=== PATIENT | female | born 1975 | race Caucasian/White ===

== ENCOUNTER → 2020-06-04 | Outpatient (REF) | payer OTHER ==
[2020-06-05 12:24] LABS: AMORPHOUS SEDIMENT MODERATE (NEGATIVE); APPEARANCE, URINE TURBID (CLEAR); BACTERIA, URINE AUTO NEGATIVE (NEGATIVE); BILIRUBIN, URINE AUTO NEGATIVE (NEGATIVE); BLOOD, URINE BLOOD NEGATIVE (NEGATIVE); CALCIUM OXALATE CRYSTALS SMALL; COLOR, URINE YELLOW (YELLOW); GLUCOSE, URINE (UA) AUTO 3+ mg/dL (NEGATIVE); KETONE, URINE AUTO TRACE mg/dL (NEGATIVE); LEUKOCYTE ESTERASE, URINE AUTO NEGATIVE (NEGATIVE); MUCUS, URINE LARGE (NEGATIVE); NITRITE, URINE AUTO NEGATIVE (NEGATIVE); PROTEIN, URINE AUTO 1+ mg/dL (NEGATIVE); RBC, URINE AUTO 0 /HPF (0-3); SPECIFIC GRAVITY URINE AUTO 1.027 (1.002-1.035); SQUAMOUS EPITHELIAL CELL UR AU 0 /HPF (0-6); WBC, URINE AUTO 0 /HPF (0-3)
== END ==
LOC: M LAB REF 12:09
PROVIDERS: ATTEND Physician Assistant
DX: R30.9 Painful micturition, unspecified (principal)

== ENCOUNTER → 2020-06-27 | Outpatient (REF) | payer OTHER ==
[~2020-06-27] MED LIST: FAMO40TA3 PO; HYDR-3363 PO; MORP30TASA PO; SERT50TA29 PO; SUCR1TAB56 PO; ZOFR4TAB16 PO
[2020-06-27 17:53] LABS: BASO % 0.8 % (0.0-1.0); EOS # 0.1 10^3/uL (0.0-0.5); EOS % 1.8 % (0.0-3.0); HEMATOCRIT 30.1 % (36.0-47.0); HEMOGLOBIN 8.5 g/dl (12.0-15.5); LYMPH # 1.3 10^3/uL (1.5-5.0); LYMPH % 26.1 % (24.0-44.0); MEAN CORPUSCULAR HGB CONC 28.2 g/dl (32.0-36.5); MEAN CORPUSCULAR VOLUME 70.7 fl (80.0-96.0); MONO # 0.4 10^3/uL (0.0-0.8); MONO % 7.3 % (2.0-8.0); NEUTROPHILS # 3.2 10^3/uL (1.5-8.5); NEUTROPHILS % 63.6 % (36.0-66.0); PLATELET COUNT, AUTOMATED 292 10^3/uL (150-450); RED BLOOD COUNT 4.26 10^6/uL (4.00-5.40); WHITE BLOOD COUNT 5.1 10^3/uL (4.0-10.0)
[2020-06-27 18:20] LABS: ALBUMIN 3.5 GM/DL (3.2-5.2); ALT/SGPT 15 U/L (12-78); BILIRUBIN,TOTAL 0.3 MG/DL (0.2-1.0); BLOOD UREA NITROGEN 12 MG/DL (7-18); CALCIUM LEVEL 8.5 MG/DL (8.5-10.1); CARBON DIOXIDE LEVEL 27 MEQ/L (21-32); CHLORIDE LEVEL 107 MEQ/L (98-107); CREATININE FOR GFR 0.65 MG/DL (0.55-1.30); GLOMERULAR FILTRATION RATE > 60.0 (>58); GLUCOSE, FASTING 80 MG/DL (70-100); IRON (FE) 13 UG/DL (50-170); MAGNESIUM LEVEL 1.8 MG/DL (1.8-2.4); PERCENT SATURATION 3.3 % (13.2-45.0); POTASSIUM SERUM 4.2 MEQ/L (3.5-5.1); SODIUM LEVEL 140 MEQ/L (136-145); TOTAL IRON BINDING CAPACITY 390 UG/DL (250-450); TOTAL PROTEIN 6.8 GM/DL (6.4-8.2)
[2020-06-27 18:21] LABS: FERRITIN < 3 NG/ML (8-252)
[2020-06-27 18:25] LABS: FOLATE 9.8 NG/ML; VITAMIN B12 LEVEL 459 PG/ML
[2020-06-30 15:06] LABS: ANA (HEP2) Positive (.); C-PEPTIDE 2.2 ng/mL (1.1-4.4)
== END ==
LOC: M LAB REF 16:17
PROVIDERS: ATTEND Pediatrics
DX: E61.1 Iron deficiency (principal); E16.2 Hypoglycemia, unspecified; K21.9 Gastro-esophageal reflux disease without esophagitis; Z98.84 Bariatric surgery status; M12.9 Arthropathy, unspecified; E07.9 Disorder of thyroid, unspecified

== ENCOUNTER 2020-07-19 21:56 | Emergency (ER) | payer MEDICARE, MEDICAID ==
[~2020-07-19] VITALS: Ht 180.3 cm; Wt 99.5 kg
[2020-07-19] MEDS ORDERED: HYDR-3363 PO (22:05)
[2020-07-19] MEDS ORDERED: SUCR1TAB56 PO (22:05)
[2020-07-19] MEDS ORDERED: MORP30TASA PO (22:05)
[2020-07-19] MEDS ORDERED: SERT50TA29 PO (22:05)
[2020-07-19] MEDS ORDERED: FAMO40TA3 PO (22:05)
[2020-07-19] MEDS ORDERED: NS 500 ML IV ONE (23:10)
[2020-07-19] MEDS ORDERED: ONDANSETRON 4MG/2ML VIAL IV ONE (23:10)
[2020-07-19 23:34] LABS: HEMATOCRIT 31.5 % (36.0-47.0); HEMOGLOBIN 9.1 g/dl (12.0-15.5); MEAN CORPUSCULAR HEMOGLOBIN 20.7 pg (27.0-33.0); MEAN CORPUSCULAR HGB CONC 28.9 g/dl (32.0-36.5); MEAN CORPUSCULAR VOLUME 71.6 fl (80.0-96.0); PLATELET COUNT, AUTOMATED 230 10^3/uL (150-450); WHITE BLOOD COUNT 5.3 10^3/uL (4.0-10.0)
[2020-07-19] MEDS ORDERED: OMEPRAZOLE 20 MG CAP PO ONE (23:45)
[2020-07-20 00:05] LABS: HCG, SERUM QUALITATIVE NEGATIVE (NEGATIVE)
[2020-07-20 00:10] LABS: ALBUMIN 3.3 GM/DL (3.2-5.2); ALT/SGPT 14 U/L (12-78); BILIRUBIN,TOTAL 0.3 MG/DL (0.2-1.0); BLOOD UREA NITROGEN 15 MG/DL (7-18); CALCIUM LEVEL 8.4 MG/DL (8.5-10.1); CARBON DIOXIDE LEVEL 27 MEQ/L (21-32); CHLORIDE LEVEL 110 MEQ/L (98-107); CK-MB VALUE MASS < 1.0 NG/ML (<3.6); CPK CREATINE PHOSPHOKINASE 67 U/L (26-192); CREATININE FOR GFR 0.62 MG/DL (0.55-1.30); GLOMERULAR FILTRATION RATE > 60.0 (>58); GLUCOSE, FASTING 82 MG/DL (70-100); MB/CK RELATIVE INDEX 1.49 (< OR =4); POTASSIUM SERUM 3.8 MEQ/L (3.5-5.1); SODIUM LEVEL 142 MEQ/L (136-145); THYROID STIMULATING HORMONE 0.462 uIU/ML (0.358-3.740); TOTAL PROTEIN 7.1 GM/DL (6.4-8.2); TROPONIN I < 0.02 NG/ML (< 0.10)
--- NOTE | 2020-07-20 01:05 | REPVR ---
PROCEDURE INFORMATION: Exam: XR Chest Exam date and time: 07/20/2020 12:28 AM Age: 44 years old Clinical indication: Chest pain TECHNIQUE: Imaging protocol: XR of the chest Views: 1 view. COMPARISON: No relevant prior studies available. FINDINGS: Lungs: Unremarkable. No consolidation. No pulmonary edema. Pleural spaces: Unremarkable. No pleural effusion. No pneumothorax. Heart/Mediastinum: Unremarkable. No cardiomegaly. Bones/joints: Unremarkable. IMPRESSION: No acute findings. Electronically signed by: Ethan Montano On 07/20/2020 01:05:22 AM
[2020-07-20] MEDS ORDERED: NS 1,000 ML IV ONE (01:15)
[2020-07-20] MEDS ORDERED: ZOFR4TAB16 PO (02:47)
[2020-07-20 03:03] VITALS: BP 103/61
--- NOTE | 2020-07-20 07:42 | ECGEPIP ---
[facility] - ED Test Date: 2020-07-19 Pat Name: MINDA PALENCIA Department: Room: - Gender: Female Director Fundraising: ANTONIA : 1975 Requested By: Shreyas Niño Order Number: [id number] Reading MD: Minda Gilmore Measurements Intervals [place] Rate: 46 P: 30 CO: 154 QRS: 53 QRSD: 72 T: 61 QT: 452 QTc: 395 Interpretive Statements Sinus bradycardia No prior Electronically Signed on 07-20-2020 7:41:46 EDT by Minda Gilmore
== END 2020-07-20 03:05 | disposition home or self-care (01) ==
LOC: M ED 21:56
DX: D50.8 Other iron deficiency anemias (principal); R53.1 Weakness; R53.83 Other fatigue; R00.1 Bradycardia, unspecified; E16.2 Hypoglycemia, unspecified; Z98.84 Bariatric surgery status
CPT/HCPCS: 71045; 80053; 81001; 82550; 82553; 84443; 84484; 84703; 85027; 86850; 86900; 86901; 87086; 93005; 96361; 96374; 99284; J2405

== ENCOUNTER 2020-08-31 21:25 | Emergency (ER) | payer MEDICARE, MEDICAID ==
[~2020-08-31] VITALS: Ht 180.3 cm; Wt 79.3 kg
--- NOTE | 2020-08-31 22:23 | REPVR ---
PROCEDURE INFORMATION: Exam: XR Right Wrist Exam date and time: 08/31/2020 9:49 PM Age: 45 years old Clinical indication: Pain; Wrist; Right; Additional info: Injury TECHNIQUE: Imaging protocol: XR Right wrist. Views: 3 or more views. COMPARISON: No relevant prior studies available. FINDINGS: Bones/joints: There is no fracture or dislocation. No widening of the scapholunate or lunotriquetral spaces is noted. There is no evidence for carpal instability in the wrist. Neutral ulnar variance is present. The joint spaces are preserved. No arthropathy is noted. Soft tissues: Unremarkable. IMPRESSION: No acute findings. Electronically signed by: Ethan Montano On 08/31/2020 22:23:32 PM
[2020-09-01] MEDS ORDERED: NORCO, ANEXSIA 5/325MG TABLET (HYDROcodone/ACETAMINOPHEN) PO ONE (00:25)
[2020-09-01 00:37] VITALS: BP 108/64
== END 2020-09-01 00:50 | disposition home or self-care (01) ==
LOC: M ED 21:25
DX: S69.91XA Unspecified injury of right wrist, hand and finger(s), initial encounter (principal); X58.XXXA Exposure to other specified factors, initial encounter; Y92.830 Public park as the place of occurrence of the external cause; Y93.89 Activity, other specified; Y99.9 Unspecified external cause status; Z79.899 Other long term (current) drug therapy; Z88.6 Allergy status to analgesic agent

== ENCOUNTER → 2020-09-10 | Outpatient (CLI) | payer MEDICARE, MEDICAID, OTHER ==
--- NOTE | 2020-09-11 08:14 | REP ---
INDICATION: RADICULOPATHY LUMBAR. COMPARISON: None. TECHNIQUE: Sagittal and axial T1 and T2-weighted scans are acquired in the usual fashion with and without fat saturation. Sequences include spin echo, turbo spin-echo, and STIR imaging sequences. FINDINGS: There is slight straightening of the normal lumbar lordosis. No bony destructive lesion is seen. Vertebral body heights are preserved. There are reactive marrow changes associated with degenerative disc disease at the L5-S1 level. There is also degenerative disc disease at L2-3. Cortical and medullary bone signal intensity are otherwise normal. The tip of the conus medullaris is normal in position and appearance at T12. No extra vertebral abnormality is appreciated. Axial and sagittal images taken at the L1-2 level are unremarkable. At L2-3 there is degenerative disc narrowing. Minimal diffuse disc bulging is seen subtly indenting the ventral margin of the thecal sac. No spinal stenosis or foraminal encroachment. Axial and sagittal images at L3-4 are unremarkable. At L4-5, there is mild degenerative disc narrowing and desiccation. Mild diffuse disc bulging is seen. This indents the ventral margin of the thecal sac. No neural foraminal narrowing or geovani spinal stenosis is seen. At L5-S1, there is degenerative narrowing of the disc with reactive marrow changes as above. There is diffuse disc bulging and some early posterior osteophytic ridging is seen. A broad-based central focal disc protrusion is seen subtly indenting the thecal sac. This abuts the left S1 root sleeve. No spinal stenosis is seen. There is minimal ligamentum flavum hypertrophy and some mild hypertrophy of the facets is seen. There is no neural foraminal narrowing. There is no evidence of spondylolysis or spondylolisthesis. IMPRESSION: Broad-based central focal disc protrusion at L5-S1. Degenerative disc changes at L5-S1, L4-5, and L2-3. <Electronically signed by Roland Mueller > 09/11/20 [id number]
== END ==
LOC: M RAD 17:22
PROVIDERS: ATTEND Nurse Practitioner Family
DX: M51.36 Other intervertebral disc degeneration, lumbar region (principal); M48.08 Spinal stenosis, sacral and sacrococcygeal region; M54.16 Radiculopathy, lumbar region

== ENCOUNTER 2020-09-15 13:47 | Emergency (ER) | payer MEDICARE, OTHER ==
[~2020-09-15] VITALS: Ht 180.3 cm; Wt 77.3 kg
[2020-09-15 13:48] VITALS: BP 112/69
[2020-09-15] MEDS ORDERED: PREG75CA2 (13:57)
[2020-09-15] MEDS ORDERED: NS 1,000 ML IV SCH (14:55)
== END 2020-09-15 15:31 | disposition left against medical advice (07) ==
LOC: M ED 13:47
DX: R53.1 Weakness (principal); Z53.9 Procedure and treatment not carried out, unspecified reason; K21.9 Gastro-esophageal reflux disease without esophagitis; Z98.84 Bariatric surgery status; F17.200 Nicotine dependence, unspecified, uncomplicated; Z79.899 Other long term (current) drug therapy; Z88.6 Allergy status to analgesic agent

== ENCOUNTER 2020-10-12 16:36 | Emergency (ER) | payer MEDICARE, OTHER ==
[~2020-10-12] VITALS: Ht 180.3 cm; Wt 78.3 kg
[~2020-10-12 16:36] MED LIST changes: +PREG75CA2 PO
[2020-10-12] MEDS ORDERED: WELLTAB38 PO (16:46)
[2020-10-12] MEDS ORDERED: PERCOCET 5MG/325MG TAB PO ONE (19:30)
--- NOTE | 2020-10-12 19:33 | REPVR ---
PROCEDURE INFORMATION: Exam: XR Right Wrist Exam date and time: 10/12/2020 4:58 PM Age: 45 years old Clinical indication: Pain; Wrist; Right; Additional info: Trauma TECHNIQUE: Imaging protocol: XR Right wrist. Views: 3 or more views. COMPARISON: CR Wrist, complete RIGHT 08/31/2020 9:34 PM FINDINGS: Bones/joints: Minimal cortical step-off is seen at the dorsal radial aspect of the distal radius on the oblique view. This is likely a subtle nondisplaced fracture. No dislocation. However, there is increased dorsal subluxation of the ulna at the distal radioulnar joint. Appearance could be exaggerated by position. No active erosions or active periostitis. Soft tissues: Severe dorsal soft tissue swelling. IMPRESSION: 1. Suspect acute subtle nondisplaced distal radial fracture. 2. Slightly increased dorsal subluxation of the ulna at the distal radioulnar joint compared to the prior study, but this could be exaggerated by positioning. 3. Severe dorsal soft tissue swelling. Although dorsal triquetral avulsion fracture is not definitively identified, this degree of dorsal soft tissue swelling is often seen with dorsal triquetral fractures. Electronically signed by: Sho Linton On 10/12/2020 19:32:34 PM
[2020-10-12] MEDS ORDERED: MORPHINE 10 MG/ML 1ML VIAL (J2270) IM ONE (20:10)
[2020-10-12] MEDS ORDERED: NORCO 5/325MG TABLET (BULK FOR ED) PO ONE (22:10)
[2020-10-12 22:20] VITALS: BP 119/59
== END 2020-10-12 22:25 | disposition home or self-care (01) ==
LOC: M ED 16:36
DX: S52.501A Unspecified fracture of the lower end of right radius, initial encounter for closed fracture (principal); S62.114A Nondisplaced fracture of triquetrum [cuneiform] bone, right wrist, initial encounter for closed fracture; W01.0XXA Fall on same level from slipping, tripping and stumbling without subsequent striking against object, initial encounter; Y92.828 Other wilderness area as the place of occurrence of the external cause; Y93.9 Activity, unspecified; Y99.9 Unspecified external cause status; D64.9 Anemia, unspecified; F41.9 Anxiety disorder, unspecified; F33.9 Major depressive disorder, recurrent, unspecified; Z88.6 Allergy status to analgesic agent; F17.200 Nicotine dependence, unspecified, uncomplicated; Z79.899 Other long term (current) drug therapy
CPT/HCPCS: 73110; 99284; J2270

== ENCOUNTER → 2020-12-02 | Outpatient (CLI) | payer MEDICARE, OTHER ==
[~2020-12-02] MED LIST changes: +WELLTAB38 PO
--- NOTE | 2020-12-02 11:49 | REP ---
INDICATION: FX LOWER END RIGHT RADIUS. COMPARISON: None. TECHNIQUE: Three views FINDINGS: Nondisplaced healing fracture distal radius. IMPRESSION: Nondisplaced healing fracture distal radius <Electronically signed by Alexis Graf > 12/02/20 114
== END ==
LOC: M SOG 09:46
PROVIDERS: ATTEND Orthopaedic Surgery Sports Medicine
DX: S52.591D Other fractures of lower end of right radius, subsequent encounter for closed fracture with routine healing (principal); X58.XXXD Exposure to other specified factors, subsequent encounter; Y92.9 Unspecified place or not applicable; Y93.9 Activity, unspecified; Y99.9 Unspecified external cause status

== ENCOUNTER → 2021-01-26 | Outpatient (CLI) | payer MEDICARE, OTHER ==
[~2021-01-26] MED LIST changes: +ISOVUE-370 76% 100ML VIAL As Ordered ONE; +MELO15TA28; +PREG150C; +ZOLO100T
--- NOTE | 2021-01-28 07:59 | REP ---
INDICATION: LUPUS COMPARISON: None TECHNIQUE: Axial contrast enhanced images from the thoracic inlet to the upper abdomen using 100 ml Isovue 370 intravenous contrast material followed by CT of the abdomen and pelvis. Coronal and sagittal reformations obtained. This CT examination was performed using the following dose reduction techniques: Automated exposure control, adjustment of mA and/or kv according to the patient's size, and use of iterative reconstruction technique. FINDINGS: The bilateral lung rodas are well aerated and clear. No consolidation, suspicious nodule or mass identified. No effusion. No pneumothorax. Tracheobronchial tree is patent. No axillary, hilar, or mediastinal adenopathy. Mediastinum demonstrates normal thoracic aorta, pulmonary vasculature, and heart/pericardium. Surrounding musculoskeletal structures are intact and without acute osseous abnormality. Limited upper abdomen demonstrates normal bilateral adrenal glands along with evidence for prior gastric bypass surgery. IMPRESSION: Normal contrast-enhanced chest CT. No acute mediastinal or pleuroparenchymal process. <Electronically signed by Micheal Hayes > 01/28/21 [id number]
--- NOTE | 2021-01-28 08:02 | REP ---
INDICATION: LUPUS. COMPARISON: None TECHNIQUE: Axial contrast-enhanced images from the lung bases to the pubic symphysis using 100 cc Isovue 370 intravenous contrast material. Coronal and sagittal reformations obtained. This CT examination was performed using the following dose reduction techniques: Automated exposure control, adjustment of mA and/or kv according to the patient's size, and the use of iterative reconstruction technique. FINDINGS: Liver, spleen, pancreas, gallbladder, bilateral adrenal glands and kidneys are normal. Incidental 1 cm right renal cyst noted. The enteric system is without obstruction or acute inflammatory process. Evidence for prior gastric bypass surgery noted.. Pelvis demonstrates normal bladder and age-appropriate uterus/adnexa. No ascites. No free air. No intraperitoneal or retroperitoneal adenopathy. Abdominal aorta and vasculature appear normal. Musculoskeletal structures are intact and without acute osseous abnormality. IMPRESSION: No acute abdominopelvic pathology appreciated. <Electronically signed by Micheal Hayes > 01/28/21 [id number]
== END ==
LOC: M RAD 16:39
PROVIDERS: ATTEND Internal Medicine Medical Oncology
DX: L93.0 Discoid lupus erythematosus (principal); R42 Dizziness and giddiness; N28.1 Cyst of kidney, acquired; Z98.84 Bariatric surgery status
CPT/HCPCS: 71260; 74177; Q9967

== ENCOUNTER → 2021-03-13 | Outpatient (CLI) | payer MEDICARE, OTHER ==
[~2021-03-13] MED LIST changes: -ISOVUE-370 76% 100ML VIAL As Ordered ONE; +PROHANCE 279.3MG/ML 15ML VIAL ONE
--- NOTE | 2021-03-13 22:42 | REPVR ---
PROCEDURE INFORMATION: Exam: MR Head Without and With Contrast Exam date and time: 03/13/2021 10:00 AM Age: 45 years old Clinical indication: Dizziness; Additional info: Lupus, dizziness TECHNIQUE: Imaging protocol: MR of the head without and with intravenous contrast. Contrast material: PROHANCE; Contrast volume: 15 ml; Contrast route: INTRAVENOUS (IV); COMPARISON: No relevant prior studies available. FINDINGS: Brain: Few small scattered nonspecific T2/FLAIR hyperintensities of the periventricular and deep subcortical white matter. No intracranial hemorrhage or extra-axial fluid collection. No evidence of mass effect or midline shift. No restricted diffusion to suggest acute infarct. No abnormal intracranial enhancement. Cerebral ventricles: No ventriculomegaly. Bones/joints: Unremarkable. Paranasal sinuses: Normal as visualized. No acute sinusitis. Mastoid air cells: No mastoid effusion. Orbital cavity: Unremarkable. Soft tissues: Unremarkable. IMPRESSION: Few small nonspecific T2/FLAIR hyperintensities of the periventricular and deep subcortical white matter. Differential includes but is not limited to sequela of chronic small vessel ischemic change (though this would be greater than expected for patient's age), demyelinating disease, vasculitis, migraine, or other chronic inflammatory white matter process. Follow-up at the discretion of neurology. Electronically signed by: Toby Sampson On 03/13/2021 22:41:23 PM
== END ==
LOC: M PLAIMG 08:41
PROVIDERS: ATTEND Internal Medicine Medical Oncology
DX: L93.0 Discoid lupus erythematosus (principal); R42 Dizziness and giddiness
CPT/HCPCS: 70553; A9576

== ENCOUNTER → 2021-04-29 | Outpatient (REF) | payer OTHER, MEDICARE ==
[~2021-04-29] MED LIST changes: -PROHANCE 279.3MG/ML 15ML VIAL ONE
== END ==
LOC: M LAB REF 16:59
PROVIDERS: ATTEND Pediatrics
DX: R82.5 Elevated urine levels of drugs, medicaments and biological substances (principal)

== ENCOUNTER → 2022-08-25 | Outpatient (REF) | payer OTHER, MEDICAID ==
[2022-08-25 18:38] LABS: C REACTIVE PROTEIN QUANTITATIV < 0.40 MG/DL (<1.0); TOTAL IRON BINDING CAPACITY 349 UG/DL (250-425)
[2022-08-25 18:40] LABS: ALBUMIN 3.5 G/DL (3.2-5.2); ALKALINE PHOSPHATASE 47 U/L (46-116); ALT/SGPT 14 U/L (7.0-40); AST/SGOT 15 U/L (<34); BILIRUBIN,TOTAL 0.4 MG/DL (0.3-1.2); BLOOD UREA NITROGEN 13 MG/DL (9-23); CALCIUM LEVEL 9.1 MG/DL (8.5-10.1); CARBON DIOXIDE LEVEL 28 MMOL/L (20-31); CHLORIDE LEVEL 106 MMOL/L (98-107); CREATININE FOR GFR 0.63 MG/DL (0.55-1.30); FOLATE 8.7 NG/ML (>5.4); GLOMERULAR FILTRATION RATE > 60.0 (>58); GLUCOSE, FASTING 76 MG/DL (60-100); IRON (FE) 15 UG/DL (50-170); PERCENT SATURATION 4.3 % (13.2-45.0); RHEUMATOID FACTOR QUANT 4.2 IU/ML (<14); SODIUM LEVEL 140 MMOL/L (136-145); THYROID STIMULATING HORMONE 0.884 uIU/ML (0.55-4.78); TOTAL PROTEIN 6.6 G/DL (5.7-8.2); VITAMIN B12 LEVEL 371 PG/ML (211-911)
[2022-08-25 18:50] LABS: ERYTHROCYTE SEDIMENTATION RATE 13 mm/hr (0-20)
[2022-08-25 18:51] LABS: HEMATOCRIT 34.4 % (36.0-47.0); HEMOGLOBIN 10.3 g/dl (12.0-15.5); MEAN CORPUSCULAR HEMOGLOBIN 25.1 pg (27.0-33.0); MEAN CORPUSCULAR HGB CONC 29.9 g/dl (32.0-36.5); MEAN CORPUSCULAR VOLUME 83.9 fl (80.0-96.0); PLATELET COUNT, AUTOMATED 315 10^3/uL (150-450); WHITE BLOOD COUNT 4.7 10^3/uL (4.0-10.0)
[2022-08-27 23:07] LABS: ANA (HEP2) Positive (.); C-PEPTIDE 7.1 ng/mL (1.1-4.4); CYCLIC CITRULLINATED PEPTIDE 6 units (0-19); INSULIN LEVEL 26.4 uIU/mL (2.6-24.9)
== END ==
LOC: M LAB REF 16:28
PROVIDERS: ATTEND Pediatrics
DX: R76.8 Other specified abnormal immunological findings in serum (principal); Z98.84 Bariatric surgery status; R41.3 Other amnesia; D50.9 Iron deficiency anemia, unspecified

== ENCOUNTER → 2022-10-19 | Outpatient (CLI) | payer OTHER | LOC: M WHC 13:14 | PROVIDERS: ATTEND Pediatrics | DX: Z12.31 Encounter for screening mammogram for malignant neoplasm of breast (principal) ==

== ENCOUNTER → 2022-11-09 | Outpatient (CLI) | payer OTHER ==
[2022-11-09 13:58] LABS: HEMATOCRIT 31.9 % (36.0-47.0); HEMOGLOBIN 9.4 g/dl (12.0-15.5); MEAN CORPUSCULAR HEMOGLOBIN 23.7 pg (27.0-33.0); MEAN CORPUSCULAR HGB CONC 29.5 g/dl (32.0-36.5); MEAN CORPUSCULAR VOLUME 80.4 fl (80.0-96.0); PLATELET COUNT, AUTOMATED 295 10^3/uL (150-450); RED BLOOD COUNT 3.97 10^6/uL (4.00-5.40); WHITE BLOOD COUNT 4.3 10^3/uL (4.0-10.0)
[2022-11-09 14:16] LABS: ALBUMIN 2.9 G/DL (3.2-5.2); ALKALINE PHOSPHATASE 43 U/L (46-116); ALT/SGPT 13 U/L (7.0-40); AST/SGOT 14 U/L (<34); BILIRUBIN,TOTAL 0.6 MG/DL (0.3-1.2); BLOOD UREA NITROGEN 8 MG/DL (9-23); CALCIUM LEVEL 8.9 MG/DL (8.5-10.1); CARBON DIOXIDE LEVEL 28 MMOL/L (20-31); CHLORIDE LEVEL 106 MMOL/L (98-107); CREATININE FOR GFR 0.61 MG/DL (0.55-1.30); GLOMERULAR FILTRATION RATE > 60.0 (>58); GLUCOSE, FASTING 83 MG/DL (60-100); IRON (FE) 22 UG/DL (50-170); PERCENT SATURATION 6.6 % (13.2-45.0); POTASSIUM SERUM 4.6 MMOL/L (3.5-5.1); SODIUM LEVEL 140 MMOL/L (136-145); TOTAL IRON BINDING CAPACITY 331 UG/DL (250-425); TOTAL PROTEIN 5.8 G/DL (5.7-8.2)
[2022-11-09 14:20] LABS: FERRITIN 3.3 NG/ML (7.3-270.7)
[2022-11-09 14:21] LABS: TOTAL 25(OH) VITAMIN D 25.6 NG/ML (20.0-100.0); VITAMIN B12 LEVEL 338 PG/ML (211-911)
== END ==
LOC: M LAB 13:02
PROVIDERS: ATTEND Surgery
DX: K91.2 Postsurgical malabsorption, not elsewhere classified (principal)

== ENCOUNTER → 2022-12-03 | Outpatient (CLI) | payer OTHER ==
[2022-12-03 14:29] LABS: CORTISOL AM 1.9 UG/DL (4.3-22.4)
[2022-12-03 14:33] LABS: BLOOD UREA NITROGEN 15 MG/DL (9-23); CALCIUM LEVEL 8.6 MG/DL (8.5-10.1); CARBON DIOXIDE LEVEL 28 MMOL/L (20-31); CHLORIDE LEVEL 105 MMOL/L (98-107); CREATININE FOR GFR 0.59 MG/DL (0.55-1.30); GLOMERULAR FILTRATION RATE > 60.0 (>58); GLUCOSE, FASTING 82 MG/DL (60-100); POTASSIUM SERUM 4.4 MMOL/L (3.5-5.1); SODIUM LEVEL 137 MMOL/L (136-145)
== END ==
LOC: M PLALAB 09:34
PROVIDERS: ATTEND Internal Medicine Endocrinology, Diabetes & Metabolism
DX: E16.2 Hypoglycemia, unspecified (principal)

== ENCOUNTER → 2022-12-13 | Outpatient (REF) | payer OTHER ==
[2022-12-13 17:08] LABS: BASO % 0.7 % (0.0-1.0); EOS # 0.1 10^3/uL (0.0-0.5); EOS % 1.4 % (0.0-3.0); HEMATOCRIT 32.9 % (36.0-47.0); HEMOGLOBIN 9.7 g/dl (12.0-15.5); LYMPH # 1.4 10^3/uL (1.5-5.0); LYMPH % 24.2 % (24.0-44.0); MEAN CORPUSCULAR HEMOGLOBIN 23.9 pg (27.0-33.0); MEAN CORPUSCULAR HGB CONC 29.5 g/dl (32.0-36.5); MONO # 0.3 10^3/uL (0.0-0.8); MONO % 5.3 % (2.0-8.0); NEUTROPHILS % 68.1 % (36.0-66.0); PLATELET COUNT, AUTOMATED 346 10^3/uL (150-450); RED BLOOD COUNT 4.06 10^6/uL (4.00-5.40); WHITE BLOOD COUNT 5.9 10^3/uL (4.0-10.0)
[2022-12-13 17:09] LABS: APPEARANCE, URINE CLEAR (CLEAR); BACTERIA, URINE AUTO 1+ (NEGATIVE); BILIRUBIN, URINE AUTO NEGATIVE (NEGATIVE); BLOOD, URINE BLOOD NEGATIVE (NEGATIVE); COLOR, URINE YELLOW (YELLOW); GLUCOSE, URINE (UA) AUTO NEGATIVE (NEGATIVE); KETONE, URINE AUTO NEGATIVE (NEGATIVE); LEUKOCYTE ESTERASE, URINE AUTO NEGATIVE (NEGATIVE); NITRITE, URINE AUTO NEGATIVE (NEGATIVE); PROTEIN, URINE AUTO NEGATIVE (NEGATIVE); RBC, URINE AUTO 0 /HPF (0-3); SPECIFIC GRAVITY URINE AUTO 1.021 (1.002-1.035); SQUAMOUS EPITHELIAL CELL UR AU 0 /HPF (0-6); UROBILINOGEN, URINE AUTO 0.2 mg/dL (0.0-2.0); WBC, URINE AUTO 0 /HPF (0-3)
[2022-12-13 17:25] LABS: ERYTHROCYTE SEDIMENTATION RATE 28 mm/hr (0-20)
[2022-12-13 17:30] LABS: CREATININE,RANDOM URINE 117.9 MG/DL
[2022-12-13 17:32] LABS: TOTAL PROTEIN,RANDOM URINE < 6.0 MG/DL (0.0-14.0)
[2022-12-13 17:41] LABS: C REACTIVE PROTEIN QUANTITATIV < 0.40 MG/DL (<1.0)
[2022-12-13 17:43] LABS: COMPLEMENT C3 66.4 MG/DL (90.0-170.0); COMPLEMENT C4 19.6 MG/DL (12-36)
== END ==
LOC: M SFHCRHEU 15:39
PROVIDERS: ATTEND Internal Medicine
DX: R76.8 Other specified abnormal immunological findings in serum (principal); M25.50 Pain in unspecified joint

== ENCOUNTER → 2023-01-03 | Outpatient (CLI) | payer OTHER, MEDICAID ==
[~2023-01-03] MED LIST changes: +GASTROGRAFIN SOLUTION 30ML As Ordered ONE; +ISOVUE-370 76% 100ML VIAL As Ordered ONE; -PREG150C; +PREG150C2; -PREG75CA2 PO; +PREG75CA3 PO
== END ==
LOC: M RAD 12:26
PROVIDERS: ATTEND Surgery
DX: K28.9 Gastrojejunal ulcer, unspecified as acute or chronic, without hemorrhage or perforation (principal)
CPT/HCPCS: 74177; Q9963; Q9967

== ENCOUNTER 2023-02-15 12:13 | Emergency (ER) | payer OTHER, MEDICAID ==
[~2023-02-15] VITALS: Ht 180.3 cm; Wt 68.2 kg
[~2023-02-15 12:13] MED LIST changes: -GASTROGRAFIN SOLUTION 30ML As Ordered ONE; -ISOVUE-370 76% 100ML VIAL As Ordered ONE
[2023-02-15 14:30] VITALS: TEMP 96.3; O2SAT 98
[2023-02-15 15:32] VITALS: BP 96/62
== END 2023-02-15 16:03 | disposition home or self-care (01) ==
LOC: M ED 12:13
DX: K94.23 Gastrostomy malfunction (principal); F41.9 Anxiety disorder, unspecified; Z88.6 Allergy status to analgesic agent; Z91.040 Latex allergy status; Z98.84 Bariatric surgery status; Z79.891 Long term (current) use of opiate analgesic; Z79.899 Other long term (current) drug therapy; Z79.1 Long term (current) use of non-steroidal anti-inflammatories (NSAID)

== ENCOUNTER → 2023-02-24 | Outpatient (CLI) | payer OTHER, MEDICAID | LOC: M PLAIMG 16:07 | PROVIDERS: ATTEND Internal Medicine | DX: M25.50 Pain in unspecified joint (principal); R93.6 Abnormal findings on diagnostic imaging of limbs ==

== ENCOUNTER → 2023-04-11 | Outpatient (REF) | payer OTHER, MEDICAID | LOC: M LAB REF 16:35 | PROVIDERS: ATTEND Pediatrics | DX: R00.1 Bradycardia, unspecified (principal) ==

== ENCOUNTER 2023-06-20 15:12 | Outpatient (CLI) | payer OTHER, MEDICAID ==
[~2023-06-20] VITALS: Ht 180.3 cm; Wt 87.5 kg
[~2023-06-20 15:12] MED LIST changes: +LEXA1TAB PO
[2023-06-20 15:15] VITALS: BP 122/70; O2SAT 100
[2023-06-20] MEDS: IRON SUCROSE 200 MG in NS 100 ML OVER 1 HR IV ONE (15:26)
[2023-06-20] MEDS ORDERED: OMEP40CA4 PO (15:30)
[2023-06-20] MEDS ORDERED: METF10004 PO (15:30)
[2023-06-20] MEDS ORDERED: METF500T13 PO (15:30)
[2023-06-20 16:40] VITALS: BP 108/63; O2SAT 98
== END 2023-06-20 16:40 ==
LOC: M INFU 15:12
PROVIDERS: ATTEND Internal Medicine Hematology & Oncology
DX: D50.9 Iron deficiency anemia, unspecified (principal); Z88.6 Allergy status to analgesic agent
CPT/HCPCS: 96365; J1756

== ENCOUNTER 2023-06-27 15:10 | Outpatient (CLI) | payer OTHER, MEDICAID ==
[~2023-06-27 15:10] MED LIST changes: +METF10004 PO; +METF500T13 PO; +OMEP40CA4 PO
[2023-06-27 15:15] VITALS: BP 122/65; O2SAT 100
[2023-06-27] MEDS: IRON SUCROSE 200 MG in NS 100 ML IV ONE (15:25)
[2023-06-27 16:30] VITALS: BP 127/81; O2SAT 98
== END 2023-06-27 16:30 | disposition home or self-care (01) ==
LOC: M INFU 15:10
PROVIDERS: ATTEND Internal Medicine Hematology & Oncology
DX: D50.9 Iron deficiency anemia, unspecified (principal); Z88.6 Allergy status to analgesic agent
CPT/HCPCS: 96365; J1756

== ENCOUNTER 2023-07-04 10:45 | Outpatient (CLI) | payer OTHER, MEDICAID ==
[~2023-07-04] VITALS: Ht 180.3 cm; Wt 86.4 kg
[2023-07-04 10:54] VITALS: BP 118/73; O2SAT 100
[2023-07-04] MEDS: IRON SUCROSE 200 MG in NS 100 ML IV ONE (10:59)
[2023-07-04 11:50] VITALS: BP 118/58; O2SAT 100
== END 2023-07-04 12:10 ==
LOC: M INFU 10:45
PROVIDERS: ATTEND Internal Medicine Hematology & Oncology
DX: D50.9 Iron deficiency anemia, unspecified (principal); Z88.6 Allergy status to analgesic agent
CPT/HCPCS: 96365; J1756

== ENCOUNTER 2023-07-11 14:50 | Outpatient (CLI) | payer OTHER, MEDICAID ==
[~2023-07-11] VITALS: Ht 180.3 cm; Wt 86.0 kg
[2023-07-11 15:00] VITALS: BP 118/66; O2SAT 99
[2023-07-11] MEDS: IRON SUCROSE 200 MG in NS 100 ML OVER 1 HR IV ONE (15:00)
[2023-07-11 16:05] VITALS: BP 108/64; O2SAT 100
== END 2023-07-11 16:05 ==
LOC: M INFU 14:50
PROVIDERS: ATTEND Internal Medicine Hematology & Oncology
DX: D50.9 Iron deficiency anemia, unspecified (principal); Z88.6 Allergy status to analgesic agent
CPT/HCPCS: 96365; J1756

== ENCOUNTER 2023-07-14 12:43 | Emergency (ER) | payer OTHER, MEDICAID ==
[~2023-07-14] VITALS: Ht 180.3 cm; Wt 86.6 kg
[2023-07-14] MEDS: KETOROLAC 60MG 2ML VIAL IM ONE (14:26)
[2023-07-14] MEDS: GABAPENTIN 300 MG CAP PO ONE (14:41)
[2023-07-14] MEDS ORDERED: LIDO5DIS41 TD (15:28)
[2023-07-14] MEDS ORDERED: NEUR300C PO (15:28)
[2023-07-14 15:41] VITALS: BP 135/81; TEMP 98.4; O2SAT 99
== END 2023-07-14 15:46 | disposition home or self-care (01) ==
LOC: M ED 12:43
DX: M50.90 Cervical disc disorder, unspecified, unspecified cervical region (principal); E11.9 Type 2 diabetes mellitus without complications; I73.9 Peripheral vascular disease, unspecified; D64.9 Anemia, unspecified; F41.9 Anxiety disorder, unspecified; F32.A Depression, unspecified; M51.36 Other intervertebral disc degeneration, lumbar region; F17.200 Nicotine dependence, unspecified, uncomplicated; Z88.6 Allergy status to analgesic agent; Z91.040 Latex allergy status; Z79.899 Other long term (current) drug therapy; Z79.84 Long term (current) use of oral hypoglycemic drugs
CPT/HCPCS: 72125; 96372; 99283; J1885

== ENCOUNTER 2023-07-18 15:15 | Outpatient (CLI) | payer OTHER, MEDICAID ==
[~2023-07-18] VITALS: Ht 180.3 cm; Wt 86.8 kg
[~2023-07-18 15:15] MED LIST changes: +LIDO5DIS41 TD; +NEUR300C PO
[2023-07-18] MEDS: IRON SUCROSE 200 MG in NS 100 ML OVER 1 HR IV ONE (15:34)
[2023-07-18 15:38] VITALS: BP 133/75; O2SAT 96
[2023-07-18 16:45] VITALS: BP 141/88; O2SAT 100
== END 2023-07-18 16:45 ==
LOC: M INFU 15:15
PROVIDERS: ATTEND Internal Medicine Hematology & Oncology
DX: D50.9 Iron deficiency anemia, unspecified (principal); Z88.6 Allergy status to analgesic agent
CPT/HCPCS: 96365; J1756

== ENCOUNTER → 2023-07-21 | Outpatient (CLI) | payer OTHER, MEDICAID | LOC: M SOG 09:00 | PROVIDERS: ATTEND Physician Assistant | DX: M25.512 Pain in left shoulder (principal) ==